=== PATIENT | female | born 1985 | race Caucasian/White ===

== ENCOUNTER 2019-03-24 18:15 | Emergency (ER) | payer OTHER ==
[~2019-03-24] VITALS: Ht 157.5 cm; Wt 77.1 kg
--- OUTSIDE RECORDS SUMMARY | 2019-03-24 18:18 | XMS REPORT | Summary of Care ---
Author Author [facility] - Health Organization [facility] - Health Address Unknown Phone Unavailable Care Team Providers Care Product Safety Test Engineer Name Role Phone RamosPatric andinoi PCP Reason for Visit * Reason Comments Notification Encounter Details Care Team Description Date Type Department Fox Castellanos MD [address] [place] [address] Notification 01/06/[address] [facility] [address] [facility] [place] [address] Allergies Comments Active Allergy Reactions Severity Noted Date Penicillins Rash 09/19/2017 documented as of this encounter (statuses as of 01/07/2019) Medications End Date Status Medication Sig Dispensed Refills Start Date Active lamoTRIgine (LAMICTAL) Take 300 mg 0 150 mg tablet by mouth 2 (two) times daily. Active Lacosamide (VIMPAT) 100 Take by 0 mg tablet mouth. Active FOLIC ACID ORAL Take by 0 mouth. Active DULCOLAX, BISACODYL, ORAL Take by 0 mouth. Active ketoconazole 2 % Apply to 60 g 1 creamIndications: Tinea area(s) 8 versicolor daily. 2 weeks Active ketoconazole 2 % Apply to 120 mL 11 shampooIndications: Tinea area(s) once 8 versicolor every month. Active ketoconazole 2 % Apply to 120 mL 11 shampooIndications: area(s) 2 9 Alopecia areata (two) times per week for Itching. Active fluocinonide 0.05 % Apply to 60 g 3 gelIndications: Alopecia area(s) 2 9 areata (two) times daily as needed for Other (areas of hair loss). Active valACYclovir 1 gram TAKE 2 4 tablet 2 tablet TABLETS BY 9 MOUTH TWICE A DAY Active doxycycline 100 mg Take 1 tablet 14 tablet 0 tabletIndications: Lesion by mouth 2 9 of labia, Vaginal odor (two) times daily. documented as of this encounter (statuses as of 01/07/2019) Active Problems Problem Noted Date Obesity (BMI 30-39.9) 11/22/2017 documented as of this encounter (statuses as of 01/07/2019) Social History Date Tobacco Use Types Packs/Day Years Used Never Smoker Smokeless Tobacco: Never Used Drinks/Week oz/Week Comments Alcohol Use rare Yes Sex Assigned at Date Recorded Not on file Industry Job Start Date Occupation Not on file Not on file Not on file Travel End Travel History Travel Start No recent travel history available. documented as of this encounter Last Filed Vital Signs Not on filedocumented in this encounter Plan of Treatment Health Maintenance Due Date Last Done Comments VARICELLA VACCINES (1 of 2000 2 - 13+ 2-dose series) DTaP,Tdap,and Td Vaccines 2006 (1 - Tdap) PAP SMEAR 2008 INFLUENZA VACCINE (#1) 2018 PNEUMOCOCCAL 0-64 YEARS Aged Out No longer eligible based COMBINED SERIES on patient's age to complete this topic documented as of this encounter Results Not on filedocumented in this encounter Insurance Type Payer Benefit Subscriber ID Effective Phone Address Plan / Dates Group Medicare MEDICARE MEDICARE xxxxxxxxxxx 2009-P [phone] [id number] [place] [address] Medicaid [facility] xxxxxxxxx 2013-P PLAN - MANAGED MEDICAID STAR PLUS resent Medicaid [employer] MEDICAID xxxxxxxxx 2011-P [phone] [id number] [place] [address] documented as of this encounter
--- OUTSIDE RECORDS SUMMARY | 2019-03-24 18:18 | XMS REPORT ---
Author Author [facility] Address Unknown Phone Unavailable Care Team Providers Care Drum Stenciler Name Role Phone Unavailable Unavailable Problems This patient has no known problems. Allergies, Adverse Reactions, Alerts This patient has no known allergies or adverse reactions. Medications This patient has no known medications. Encounters Start Date/Time End Date/Time Encounter Type Admission Type Attending [facility] Care Facility Care Department Encounter ID 2019-03-02 06:23:00 Inpatient [facility] [id number] 2019-01-14 05:24:00 Inpatient [facility] [id number] 2018-08-28 12:42:36 Outpatient [facility] [id number] 2018-07-21 10:48:00 Inpatient U [facility] [id number] 2018-09-10 08:41:00 2018-09-10 08:41:00 Outpatient [facility] [id number] 2018-08-26 14:02:00 2018-08-26 14:02:00 Outpatient [facility] [id number]
--- OUTSIDE RECORDS SUMMARY | 2019-03-24 18:18 | XMS REPORT | Summary of Care ---
Author Author NANCY WEN M.D. Organization Unknown Address Unknown Phone Unavailable Care Team Providers Care Filtration Supervisor Name Role Phone NANCY WEN M.D. 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) Status: Active Localization-related symptomatic epilepsy and epileptic syndromes with complex partial seizures, intractable, without status epilepticus (345.41, G40.219) Status: Active Medications Name Dates Details lamoTRIgine 25 MG Oral Tablet TAKE 1 TABLET TWICE DAILY Quantity: 180 BEHZAD M.D., NANCY * Start : 27-Jan-2018 Active LaMICtal 200 MG Oral Tablet TAKE 1 TABLET TWICE DAILY * Quantity: 180 Refills: 3 BEHZAD M.D., NANCY Active Propranolol HCl - 10 MG Oral Tablet TAKE 1 TABLET BY MOUTH EVERY DAY * Quantity: 30 Refills: 2 BEHZAD M.D., NANCY * Start : 06-May-2018 Active Vimpat 200 MG Oral Tablet TAKE 1 TABLET TWICE DAILY * Quantity: 60 Refills: 5 BEHZAD M.D., NANCY * Start : 04-Feb-2012 Active Allergies and Adverse Reactions Name Dates Details Penicillins (Allergy) Status: Active Procedures Procedure Dates Details Procedures not documented Immunization Name Dates Details Immunizations not documented Social History Name Dates Details - Status: Name Dates Details Never smoker Vital Signs Date Test Result Details No Known Vitals to report Results Date Description Value Details Results not documented Plan of Care Name Dates Details Planned Observations Planned Goals not documented Interventions Provided Plan* Safety Precautions: No driving for 3 months, Do not swim alone or bathe alone, Avoid cooking over an open flame Do not work on ladders or other high places Seizure first aid reviewed * Thank you for coming to the epilepsy clinic today. We discussed a few relevant issues. * -- We discussed potential side effects from medication including but not limited to drowsiness, sedation, poor concentration, drug rash, hair loss, weight gain, kidney stones, depression, aggression, etc. * -- One potential side effect of medication is malformations in the unborn child (fetus). This happens in a very small proportion of women (0.5-1% of outcomes) even if they have no epilepsy and are not on medication. This risk is increased if you have epilepsy and approximately doubles if you are on seizure medication. Specific medications may increase the risk even more and so it is very important to plan medication BEFORE conception, because damage may occur even before is detected. * -- Folic acid can possibly lessen risk of abnormalities and so you should be on folic acid supplementation even if you are not planning conception. * -- Medication adherence (taking your medications regularly as prescribed) is important to ensure adequate treatment of seizures. * Additional Plan:. * The results of her EMU stay, additional tests done as outpatient, results of the patient management conference, and epilepsy, effects of AED on was all discussed at length today. * Patient plans to move forward with intracranial evaluation. She is scheduled to see Dr. Flores in a few weeks. She will continue the current medications. Advised to call the office for any questions or concerns in the interim. * Continue current medication and dose(s): Instructions Name Dates Details Instructions not documented Encounters Appointment; NANCY WEN M.D. Encounter Diagnosis: Problem not documented On: 16-Dec-2017 9:30 Appointment; NANCY WEN M.D. Encounter Diagnosis: Problem not documented On: 21-Jan-2018 10:30 Appointment; NANCY WEN M.D. Encounter Diagnosis: Problem not documented On: 07-Apr-2018 8:30 Appointment; NANCY WEN M.D. Encounter Diagnosis: Problem not documented On: 29-Apr-2018 9:30 Appointment; NANCY WEN M.D. Encounter Diagnosis: Problem not documented On: 07-Jul-2018 11:00 Appointment; NANCY WEN M.D. Encounter Diagnosis: Problem not documented On: 04-Aug-2018 11:00 Appointment; NANCY WEN M.D. Encounter Diagnosis: Problem not documented On: 26-Aug-2018 11:30 Appointment; NANCY WEN M.D. Encounter Diagnosis: Problem not documented On: 01-Dec-2018 11:00
[2019-03-24 19:04] LABS: BASOPHILS % 0.3 % (0.0-1.0); EOSINOPHILS # (AUTO) 0.2 (0.0-0.4); EOSINOPHILS % 2.8 % (0.0-6.0); HEMATOCRIT 32.8 % (34.2-44.1); LYMPHOCYTES % 25.6 % (18.0-39.1); MEAN CORPUSCULAR HEMOGLOBIN 28.9 pg (28-32); MEAN CORPUSCULAR HGB CONC 33.5 g/dL (31-35); MEAN CORPUSCULAR VOLUME 86.3 fL (81-99); MONOCYTES # (AUTO) 0.7 (0.2-0.8); MONOCYTES % 8.8 % (4.4-11.3); NEUTROPHILS # (AUTO) 4.9 (2.1-6.9); NEUTROPHILS % 62.2 % (38.7-80.0); PLATELET COUNT 309 x10e3/uL (140-360); RED CELL DISTRIBUTION WIDTH 12.4 % (11.7-14.4)
[2019-03-24 19:19] LABS: ALANINE AMINOTRANSFERASE 13 IU/L (0-55); ALBUMIN/GLOBULIN RATIO 1.2 (0.8-2.0); ALKALINE PHOSPHATASE 74 IU/L (40-150); ANION GAP 13.5 mmol/L (8-16); BLOOD UREA NITROGEN 7 mg/dL (7-26); BUN/CREATININE RATIO 9 (6-25); CALCIUM 9.2 mg/dL (8.4-10.2); CARBON DIOXIDE 25 mmol/L (22-29); CHLORIDE 103 mmol/L (98-107); CREATINE KINASE 90 IU/L (29-168); EST GLOMERULAR FILTRATION RATE > 60 ML/MIN (60-); GLUCOSE 103 mg/dL (74-118); POTASSIUM 3.5 mmol/L (3.5-5.1); SODIUM 138 mmol/L (136-145)
--- NOTE | 2019-03-24 20:00 | Diagnostic Imaging Report ---
History: Head pain, brain surgery 3 weeks ago. Comparison studies: None Technique: Axial images were obtained from the skull base to the vertex. Coronal and sagittal reconstructions obtained from the axial data. Dose modulation, iterative reconstruction, and/or weight based adjustment of the mA/kV was utilized to reduce the radiation dose to as low as reasonably achievable. Findings: Scalp/skull: Right pterional craniotomy changes. No fractures, blastic or lytic lesions. Extra-axial spaces: Laminar hypodensity/fluid collection underlying the craniotomy site with trace of pneumocephalus, without mass effect. Brain sulci: Appropriate for age. Ventricles: Exvacuodilatation of the right lateral ventricle. No hydrocephalus. Parenchyma: Hypodensity at the right temporal lobe underlying the craniotomy site, related to surgical cavity. No significant masses. Sellar/suprasellar region: No abnormalities Craniocervical junction: Patent foramen magnum. No Chiari one malformation. IMPRESSION: No acute abnormalities . Right pterional craniotomy changes with underlying laminar fluid collection and trace of pneumocephalus, without mass effect. Right temporal lobe resection cavity with associated volume loss and exvacuodilatation of the ipsilateral lateral ventricle. No midline shift or herniation. Signed by: DR Palmer Childs M.D. on 03/24/2019 7:57 PM
[2019-03-24] MEDS ORDERED: ACETAMIN/BUTALBITAL/CAFFEINE TAB PO NR (20:15)
[2019-03-24] MEDS ORDERED: METOCLOPRAMIDE HCL 10 MG/2ML VIAL IV NR (20:15)
[2019-03-24] MEDS ORDERED: DIPHENHYDRAMINE HCL INJ 50 MG/ML VIAL IV NR (20:15)
== END 2019-03-24 21:33 | disposition home or self-care (01) ==
LOC: ER 18:15
DX: G43.001 Migraine without aura, not intractable, with status migrainosus (principal); G40.909 Epilepsy, unspecified, not intractable, without status epilepticus
CPT/HCPCS: 36415; 70450; 80053; 82550; 82553; 84484; 85025; 93005; 99284; J1200; J2765